=== PATIENT | male | born 1965 | race African-American/Black ===

== ENCOUNTER 2020-08-12 09:21 | Emergency (ER) | payer OTHER ==
[2020-08-12 21:40] LABS: SARS-CoV-2 MS2 Positive; SARS-CoV-2 N Gene Negative; SARS-CoV-2 S Gene Negative; SARS-CoV-2 by NAA Not Detected (NotDetected); SARS-CoV-2 orf1ab Negative
== END 2020-08-12 09:44 ==
LOC: MADERS 09:21
DX: J06.9 Acute upper respiratory infection, unspecified (principal); Z20.828 Contact with and (suspected) exposure to other viral communicable diseases; I10 Essential (primary) hypertension
CPT/HCPCS: 87635; 99283; U0003